=== PATIENT | male | born 1970 | race Caucasian/White ===

== ENCOUNTER 2018-12-24 05:45 | Day surgery (SDC) | payer OTHER ==
[~2018-12-24] VITALS: Ht 180.3 cm; Wt 86.2 kg
--- NOTE | 2018-12-24 09:46 | NUR ---
12/24/18 0946 Mckayla Abel 2720-PATIENT ARRIVED TO PACU ON 8L MASK PLACED ON 6L. RR EVEN. PATIENT NONAROUSABLE. DRESSING TO RIGHT SHOULDER CDI ICE APPLIED. RIGHT ARM ELEVATED IN SLING. GUARDS AT BEDSIDE.
--- NOTE | 2018-12-24 10:21 | NUR ---
1015 - PT ARRIVES BACK TO DS ROOM 10 ON RA. PT AWAKE AND ORIENTED. PT DENIES PAIN/NAUSEA AND SIPS ICE WATER AND TOLERATES. TINGLING IN RIGHT HAND. SURGICAL DRESSING ON RIGHT SHOULDER C/D/I. [facility] GUARDS AT BEDSIDE. CALL LIGHT WITHIN REACH
--- NOTE | 2018-12-24 11:28 | NUR ---
1100- PT C/O NAUSEA. ZOFRAN GIVEN PER ORDERS SEE EMAR 1120- VSS. PT REPORTS DECREASE IN NAUSEA AND DENIES PAIN. ONLY TINGLING/NUMBNESS IN RIGHT UPPER EXTREMITY. PT ENC TO USE BATHROOM TO VOID. PT TOLERATES PO FLUIDS AND CRACKERS/PUDDING. [facility] GUARDS AT BEDSIDE. CALL LIGHT WITHIN REACH
[2018-12-24] MEDS ORDERED: ULTRAM50 MG PO (11:47)
[2018-12-24] MEDS ORDERED: NORCO 10-325 T1 EACH PO (11:48)
--- NOTE | 2018-12-24 11:55 | NUR ---
PT REPORTS DECREASED NAUSEA AND STILL TOLERATES PO FLUIDS AND FOOD. PT PROVIDED WITH MORE ICE WATER AND DENIES PAIN.
--- NOTE | 2018-12-24 12:30 | NUR ---
1145- PT SITS UP IN BED TO USE BEDSIDE URINAL. BLOOD PRESENT ON BOTTOM OF MEPILEX DRESSING AND POOLING IN SLING. GAUZE PLACED UNDER ARMPIT AND OPSITE REIFORCED. 1220- GAUZE CHANGED UNDER ARMPIT AND PT SITTING AT SIDE OF BED. PT ABLE TO URINATE SMALL AMOUNT. PT DENIES NAUSEA. PT REPORTS FEELING RETURNING TO RIGHT EXTREMITY.
--- NOTE | 2018-12-24 12:59 | NUR ---
1245- DISCUSSED BLEEDING PRESENT ON DRESSING WITH DR. MITCHELL. SUGGESTED REINFORCING DRESSING WITH ADDITIONAL OPSITE. OPSITE PLACED. FRESH GAUZE PLACED IN ARMPIT. IV DC'D WNL. 1300- PT MEETS DC CRITERIA AND DENIES NAUSEA AND PAIN. PT REPORTS FEELING RETURNING TO HAND BUT DENIES PAIN IN SHOULDER. VSS. PT TRANSPORTED IN WHEELCHAIR BY [facility] GUARDS FROM DEPARTMENT
--- NOTE | 2018-12-24 13:28 | NUR ---
7043- REPORT CALLED TO NURSE AT [facility]
--- NOTE | 2018-12-26 07:10 | OR ---
[facility] [address], [place] [address] Signed DATE OF OPERATION: 12/24/2018 SURGEON: Oziel Mitchell MD PREOPERATIVE DIAGNOSIS: End-stage osteoarthritis, right shoulder. POSTOPERATIVE DIAGNOSIS: End-stage osteoarthritis, right shoulder. PROCEDURE: Right total shoulder arthroplasty. ANESTHESIA: General. SPECIMENS AND COMPLICATIONS: There were no specimens or complications. BLOOD LOSS: 100 mL. WHAT WAS DONE: The patient was taken to the operating room. After anesthesia was induced and airway secured, the patient was placed in a modified beach chair position. He was then prepped and draped in a routine sterile fashion. A straight anterior approach was made to the shoulder over the deltopectoral interval. Skin was divided sharply. Subcutaneous tissue was bluntly spread. Hemostasis was achieved with electrocautery. Really using the tip of the glove finger, we opened the deltopectoral interval and took the vein laterally with the deltoid. Using primarily blunt finger dissection, we opened up the interval underneath the deltoid including the subacromial space and all over the lateral aspect of the proximal humerus. Retractors were placed because the patient only externally rotated to -5 degrees, we did carry the dissection distally and released the top 1/2 of the pec major tendon. We then identified the biceps tendon tagged with a stay suture and released it from the bicipital groove. We then transected it and elevated the subscapularis up off the anterior aspect of the humerus. Again, we placed some stay sutures in the leading edge of the subscap and allowed it to retract. We then rotated the humeral head up into the field and it was markedly deformed. We initially used an osteotome to remove numerous huge osteophytes. We then placed the personal insurance advisor hole right at the base of the greater tuberosity. We then did sequential reaming and had a Portions of this report were created using voice recognition software. There may be inadvertent computer error. Please read with context in mind. If there are any questions, please contact me. Electronically Signed By: OZIEL MITCHELL MD 12/26/18 0710 PATIENT NAME: LANE JOHNSON OPERATIVE REPORT DATE OF : 68 REPORT #: [id number] PHYSICIAN: OZIEL MITCHELL MD PCP: DAVID GARCIA MD REPORT IS CONFIDENTIAL AND NOT TO BE RELEASED WITHOUT AUTHORIZATION [facility] [address], [place] [address] Signed pretty snug fit with a 12 mm reamer. We then assembled the cutting jig and resected the proximal humerus. The humeral head wafer was then removed and sized to about a 52, 15. We then removed additional bone spurs around the humerus. We then able to place several retractors around the glenoid and got actually excellent glenoid exposure. We used electrocautery to remove what was left of the labrum and the biceps insertion. We then re-released circumferentially. We were then able to size the glenoid to a 48. We placed the standard central reamer followed by the pegs. We then trialed a 48. We were happy with the alignment and coverage and so we mixed a single batch of cement put in the peripheral peg holes. We packed bone peg around the central thin and impacted the all-poly glenoid component. We then rotated the humerus back up into the field. We again trialed the 12 mm stem and we used the offset 52 head, which gave us better posterior coverage. This gave us good range of motion without impingement. We had excellent stability. We therefore removed the trials, inserted the real humeral component and again put the 52 mm offset head, and impacted it to maximize posterior coverage. We then placed the sutures through the humerus and then through the fins of the component. This was used to advance and reattach the subscapularis. Biceps tenodesis was accomplished with interrupted nonabsorbable sutures to the pec tendon. The wound was then irrigated and closed in a standard fashion. A sterile dressing was applied and the patient was awakened, taken to the recovery room where he arrived in stable condition. Counts were correct and antibiotic protocols were followed. Oziel Mitchell MD WFB/MODL /[id number] Copies: ~ Portions of this report were created using voice recognition software. There may be inadvertent computer error. Please read with context in mind. If there are any questions, please contact me. Electronically Signed By: OZIEL MITCHELL MD 12/26/18 0710 PATIENT NAME: LANE JOHNSON OPERATIVE REPORT DATE OF : 68 REPORT #: [id number] PHYSICIAN: OZIEL MITCHELL MD PCP: DAVID GARCIA MD REPORT IS CONFIDENTIAL AND NOT TO BE RELEASED WITHOUT AUTHORIZATION
== END 2018-12-24 13:00 | disposition home or self-care (01) ==
LOC: OPS 05:45 → DS 05:45 → OPS 06:45
PROVIDERS: Orthopaedic Surgery
PROC: 0RRJ0JZ Replacement of Right Shoulder Joint with Synthetic Substitute, Open Approach (ICD-10-PCS; principal; 2018-12-24 06:45)
DX: M19.011 Primary osteoarthritis, right shoulder (principal); Z87.891 Personal history of nicotine dependence
CPT/HCPCS: 01630; 64415; 73030; 76942; C1713; C1776; J0330; J0690; J1100; J1885; J2250; J2405; J2704; J2710; J2795; J3010; J7120